=== PATIENT | male | born 1950 | race Caucasian/White ===

== ENCOUNTER 2020-03-02 14:20 | Outpatient (RCR) | payer MEDICARE, OTHER | END 2020-05-31 | disposition home or self-care (01) | LOC: ONC 14:20 | PROVIDERS: ATTEND Radiology Radiation Oncology | DX: C61 Malignant neoplasm of prostate (principal); E29.1 Testicular hypofunction; Z87.442 Personal history of urinary calculi; E78.00 Pure hypercholesterolemia, unspecified; I10 Essential (primary) hypertension; E66.01 Morbid (severe) obesity due to excess calories; Z96.653 Presence of artificial knee joint, bilateral; Z96.611 Presence of right artificial shoulder joint; Z96.612 Presence of left artificial shoulder joint; Z79.899 Other long term (current) drug therapy | CPT/HCPCS: 99204 ==

== ENCOUNTER 2020-08-03 14:35 | Outpatient (RCR) | payer MEDICARE, OTHER ==
[2020-08-31] MEDS ORDERED: METO50TA7 PO (13:08)
[2020-08-31] MEDS ORDERED: ASPI-999 PO (13:08)
[2020-08-31] MEDS ORDERED: FENO48TA10 PO (13:08)
[2020-08-31] MEDS ORDERED: OMG1KC PO (13:08)
[2020-08-31] MEDS ORDERED: ROSU10TA28 PO (13:08)
[2020-09-07] MEDS ORDERED: CIPR-226 PO (11:46)
[2020-09-07] MEDS ORDERED: ACET1TAB43 PO (11:46)
== END 2020-09-13 | disposition home or self-care (01) ==
LOC: ONC 14:35
PROVIDERS: ATTEND Radiology Radiation Oncology
DX: C61 Malignant neoplasm of prostate (principal); E29.1 Testicular hypofunction; Z87.442 Personal history of urinary calculi; E78.00 Pure hypercholesterolemia, unspecified; I10 Essential (primary) hypertension; E66.01 Morbid (severe) obesity due to excess calories; Z96.653 Presence of artificial knee joint, bilateral; Z96.611 Presence of right artificial shoulder joint; Z96.612 Presence of left artificial shoulder joint; Z79.899 Other long term (current) drug therapy
CPT/HCPCS: 76873

== ENCOUNTER 2020-09-05 05:37 | Outpatient (RCR) | payer MEDICARE, OTHER ==
[~2020-09-05] VITALS: Ht 182 cm; Wt 134.0 kg
[~2020-09-05 05:37] MED LIST: ASPI-999 PO; FENO48TA10 PO; METO50TA7 PO; OMG1KC PO; ROSU10TA28 PO
== END 2020-09-05 14:44 | disposition home or self-care (01) ==
LOC: PREOP 05:37
PROVIDERS: ATTEND Radiology Radiation Oncology
DX: Z01.812 Encounter for preprocedural laboratory examination (principal); Z20.828 Contact with and (suspected) exposure to other viral communicable diseases
CPT/HCPCS: 87635

== ENCOUNTER 2020-09-07 11:03 | Day surgery (SDC) | payer MEDICARE, OTHER ==
[~2020-09-07] VITALS: Ht 182 cm; Wt 134.0 kg
[2020-09-07] VITALS (11 sets, daily range): BP systolic 141–187; BP diastolic 71–95
--- NOTE | 2020-09-07 11:42 | Progress Note-Pre Operative ---
Pre-Operative Progress Note H&P Reviewed The H&P was reviewed, patient examined and no changes noted. Date Seen by Provider: Sep 07, 2020 Time Seen by Provider: 11:41 Date H&P Reviewed: Sep 07, 2020 Time H&P Reviewed: 11:42 Pre-Operative Diagnosis: Prostate cancer cT1c, PSA3.1, [place]im[place] 8 (4+4) SUSAN BRAUN MD Sep 07, 2020 11:42
[2020-09-07] MEDS ORDERED: CIPR-226 PO (11:46)
[2020-09-07] MEDS ORDERED: ACET1TAB43 PO (11:46)
--- NOTE | 2020-09-07 11:50 | Discharge Inst-Simple/Standard ---
Discharge Inst-Standard Reconcile Patient Problems Problems Reviewed?: Yes Discharge Medications New, Converted or Re-Newed RX: RX Given to Pt/Family Patient Instructions/Follow Up Plan of Care/Instructions/FU: 1)One month post implant scan at [facility] cancer center 10/03/20 at 10:00 am 2)One month follow up with Dr. Nugent 10/06/20 at 3:00 pm Activity as Tolerated: Yes Discharge Diet: No Restrictions Other Inst to Patient Please instruct patient on haq catheter removal for Wednesday 09/12 in the morning. SUSAN BRAUN MD Sep 07, 2020 11:50
[2020-09-07] MEDS ORDERED: LACTATED RINGERS 1,000 ML IV PRN (11:57)
[2020-09-07] MEDS ORDERED: LEVOFLOXACIN 500 MG/100 ML IV 100 ML IV ONE (12:00)
[2020-09-07] MEDS ORDERED: proPOfol 200 MG/20 ML (DIPRIVAN) VIAL IV ONE (13:34)
[2020-09-07] MEDS ORDERED: MIDAZOLAM 2 MG/2 ML (VERSED) VIAL ONE (13:34)
[2020-09-07] MEDS ORDERED: fentaNYL INJECTION 100 MCG/2 ML AMP ONE (13:34)
[2020-09-07] MEDS ORDERED: LIDOCAINE PF 2% 5 ML (XYLOCAINE) VIAL ONE (13:34)
[2020-09-07] MEDS ORDERED: ONDANSETRON 4 MG/2 ML (SDV) Z0FRAN ONE (13:34)
[2020-09-07] MEDS ORDERED: SEVOFLURANE (ULTANE) 15 ML INHAL SOLN ONE ×4 (13:34→14:16)
[2020-09-07] MEDS ORDERED: BACITRACIN OINTMENT 28 GM TUBE ONE (13:38)
--- NOTE | 2020-09-07 13:47 | Progress Note-Post Operative ---
Post-Operative Progess Note Surgeon (s)/Ticker Installer (s) Surgeon SUSAN BRAUN MD Ticker Installer: Charline DUNBAR MD Pre-Operative Diagnosis Prostate cancer cT1c, PSA3.1, [facility] 8 (4+4) Post-Operative Diagnosis Same as preop Procedure & Operative Findings Date of Procedure 09/07/20 Procedure Performed/Findings (1) 100% Cesium 131 permanent prostate seed implant (2) Injection of biodegradable hydrogel prostate-rectal spacer utilizing the SpaceOAR system (3) Cystogram Prostate volume 36.2 cc Anesthesia Type General Estimated Blood Loss Estimated blood loss (mL): Minimal Specimens/Packing Specimens Removed N/A Packing: N/A SUSAN BRAUN MD Sep 07, 2020 13:47
[2020-09-07] MEDS ORDERED: ROCURONIUM 10 MG/ML 5 ML SYRINGE IV ONE (14:50)
--- NOTE | 2020-09-07 14:52 | Anesthesia-General Post-Op ---
General Patient Condition Mental Status/LOC: Same as Preop Cardiovascular: Satisfactory Nausea/Vomiting: Absent Respiratory: Satisfactory Pain: Controlled Complications: Absent Post Op Complications Complications None Follow Up Care/Instructions Patient Instructions None needed. Anesthesia/Patient Condition Patient Condition Patient is doing well, no complaints, stable vital signs, no apparent adverse anesthesia problems. No complications reported per nursing. BETH ARENAS CRNA Sep 07, 2020 14:52
[2020-09-07] MEDS ORDERED: ONDANSETRON 4 MG/2 ML (SDV) Z0FRAN IVP PRN (15:00)
[2020-09-07] MEDS ORDERED: fentaNYL INJECTION 100 MCG/2 ML AMP IVP ONE (15:00)
[2020-09-07] MEDS ORDERED: MEPERIDINE (DEMEROL) INJ 50 MG/ML IVP ONE (15:00)
[2020-09-07] MEDS ORDERED: morphine INJ 10 MG/ML 1ML (SYR OR VIAL) IVP ONE (15:00)
--- NOTE | 2020-09-07 15:15 | NUR ---
[facility]CRIPT[facility] CALL[facility] [place], [place], PER PT REQUEST. DISCHARGE INSTRUCTIONS, INCLUDING CATHETER CARE, DISCUSSED WITH AND DEMONSTRATED TO PT AND . CATHETER PLACED ON LEG BAG FOR DISMISSAL. ALERT, CHEERFUL, STATES HE IS READY FOR DISMISSAL. Addendum: 09/07/20 at 1809 by NICHOLAS WILLETT RN AMENDED TIME OF CARE/NOTE SHOULD BE 7740
--- NOTE | 2020-09-07 15:31 | Diagnostic Imaging Report ---
EXAM: FLUOROSCOPY UP TO 1 HOUR. INDICATION: Brachytherapy. COMPARISON: None. FINDINGS/ IMPRESSION: Fluoroscopy time: 16 seconds. 4 images were acquired. Dictated by: Dictated on workstation # [id number]
--- NOTE | 2020-09-07 15:45 | NUR ---
TO AMB SURG FROM PAR PER CART. ALERT, RATES "PRESSURE" FROM GLASS CATHETER 2 ON NUMERIC SCALE. CATHETER SECURED TO LEFT LEG WITH STATLOCK, BAG TO DD ON LOWER BED RAIL WITH CLEAR, LIGHT SARI COLORED URINE IN TUBING AND BAG. TAPED ABD AT PERINEAL SURGICAL SITE, NO ACTIVE BLEEDING. NO BLEEDING AT MEATUS. PO FLUIDS PROVIDED.
--- NOTE | 2020-09-07 16:30 | NUR ---
HAS BEEN CONVERSATIONAL, RESTING QUIETLY. NO CHANGE IN PAIN OR SITE ASSESSMENTS. TAKING PO FLUIDS WITHOUT PROBLEM.
== END 2020-09-07 17:35 | disposition home or self-care (01) ==
LOC: SDC 11:03
PROVIDERS: ATTEND Radiology Radiation Oncology
DX: C61 Malignant neoplasm of prostate (principal); I10 Essential (primary) hypertension; E78.00 Pure hypercholesterolemia, unspecified; K57.30 Diverticulosis of large intestine without perforation or abscess without bleeding; E23.0 Hypopituitarism; E66.01 Morbid (severe) obesity due to excess calories; Z68.41 Body mass index [BMI] 40.0-44.9, adult; Z79.899 Other long term (current) drug therapy; Z87.442 Personal history of urinary calculi; Z80.0 Family history of malignant neoplasm of digestive organs; Z80.42 Family history of malignant neoplasm of prostate
CPT/HCPCS: 55874; 76000; 76965; 77290; 77318; 77332; 77370; 77470; 77778; 87081; C1715 ×2; C2643

== ENCOUNTER 2020-11-24 11:22 | Outpatient (RCR) | payer MEDICARE, OTHER ==
[~2020-11-24 11:22] MED LIST changes: +ACET1TAB43 PO; +CIPR-226 PO
== END 2020-11-28 09:43 | disposition home or self-care (01) ==
LOC: ONC 11:22
PROVIDERS: ATTEND Radiology Radiation Oncology
DX: C61 Malignant neoplasm of prostate (principal); E29.1 Testicular hypofunction; I10 Essential (primary) hypertension; E66.01 Morbid (severe) obesity due to excess calories; Z87.442 Personal history of urinary calculi; Z96.653 Presence of artificial knee joint, bilateral; Z96.611 Presence of right artificial shoulder joint; Z96.612 Presence of left artificial shoulder joint; Z79.899 Other long term (current) drug therapy; Z80.42 Family history of malignant neoplasm of prostate; Z80.3 Family history of malignant neoplasm of breast
CPT/HCPCS: 77290; 77295; 77300; 77301; 77334; 77336; 77338; 77385; 77470

== ENCOUNTER 2021-01-19 13:31 | Outpatient (RCR) | payer MEDICARE, OTHER | END 2021-02-26 | disposition home or self-care (01) | LOC: ONC 13:31 | PROVIDERS: ATTEND Radiology Radiation Oncology | DX: C61 Malignant neoplasm of prostate (principal); E29.1 Testicular hypofunction; I10 Essential (primary) hypertension; E66.01 Morbid (severe) obesity due to excess calories; E78.00 Pure hypercholesterolemia, unspecified; Z87.442 Personal history of urinary calculi; Z96.653 Presence of artificial knee joint, bilateral; Z96.611 Presence of right artificial shoulder joint; Z96.612 Presence of left artificial shoulder joint; Z79.899 Other long term (current) drug therapy; Z80.42 Family history of malignant neoplasm of prostate; Z80.3 Family history of malignant neoplasm of breast | CPT/HCPCS: 77336; 77385; 99213 ==